=== PATIENT | female | born 1985 | race Caucasian/White ===

== ENCOUNTER 2016-11-06 20:13 | Emergency (ER) | payer OTHER ==
[~2016-11-06] VITALS: Ht 165.1 cm; Wt 86.5 kg
[2016-11-06 21:34] VITALS: Ht 165.1 cm; Wt 86.5 kg
--- NOTE | 2016-11-06 22:56 | RADRPT ---
PROCEDURE: Obstetrical ultrasound. CLINICAL INDICATION: Vaginal bleeding. TECHNIQUE: Multiple sonographic images of the pelvis were obtained with transabdominal technique. Images were obtained with bell scale and color Doppler. COMPARISON: No prior studies are available for comparison. FINDINGS: There is an intrauterine gestational sac with a pole identified. heart tones of 162 beat s per minute are identified. The crown-rump length averages 0.96 cm, compatible with 7 weeks a nd 0 days. The mean sac diameter averages 2.18 cm, compatible with 7 weeks and 0 days. A yolk sac is identified. A small subchorionic collection is identified. There is no pelvic free fluid. Bilateral ovaries are not visualized. There is no suspicious adnexal mass identified. IMPRESSION: Single live intrauterine with an estimated gestational age of 7 weeks and 0 days, with an ultrasound JEANNE of 06/25/2017. Small subchorionic hemorrhage. Bilateral ovaries not visualized. .Karan Stearns MD, Date Time Electronically viewed and signed by .Karan Stearns MD, MD on 11/06/2016 22:56 .T/
[2016-11-06 23:12] LABS: BASOPHIL # 0.1 10^3/ul (0.0-0.1); BASOPHILS % 0.5 % (0.0-2.0); EOSINOPHILS # 0.2 10^3/ul (0.0-0.5); EOSINOPHILS % 1.7 % (0.0-7.0); HEMOGLOBIN 13.1 g/dl (12.0-16.0); LYMPHOCYTES # 3.5 10^3/ul (0.8-2.9); MEAN CORPUSCULAR HEMOGLOBIN 31.2 pg (29.0-33.0); MEAN CORPUSCULAR HGB CONC 34.4 g/dl (32.0-37.0); MEAN CORPUSCULAR VOLUME 90.6 fl (82.0-101.0); MEAN PLATELET VOLUME 9.4 fl (7.4-10.4); MONOCYTE # 0.7 10^3/ul (0.3-0.9); MONOCYTES % 5.8 % (0.0-11.0); NEUTROPHIL # 6.9 10^3/ul (1.6-7.5); PLATELET COUNT 215 10^3/UL (140-440); RED BLOOD COUNT 4.19 10^6/ul (4.20-5.40); RED CELL DISTRIBUTION WIDTH 12.7 % (11.5-14.5); UNCORRECTED WBC 11.3 10^3/ul (4.8-10.8); WHITE BLOOD COUNT 11.3 10^3/ul (4.8-10.8)
[2016-11-06 23:17] LABS: CONDITION 1
[2016-11-06 23:38] LABS: ADD UMIC YES; URINE BILIRUBIN (Dip) NEGATIVE (NEGATIVE); URINE BLOOD (Dip) 3+ (NEGATIVE); URINE COLOR LT. YELLOW (YELLOW); URINE GLUCOSE (Dip) NEGATIVE (NEGATIVE); URINE KETONES (Dip) NEGATIVE (NEGATIVE); URINE LEUKOCYTE ESTERASE (Dip) NEGATIVE (NEGATIVE); URINE NITRITE (Dip) POSITIVE (NEGATIVE); URINE TOTAL PROTEIN (Dip) NEGATIVE (NEGATIVE); URINE UROBILINOGEN (Dip) 0.2 E.U./dL (0.1-1.0)
[2016-11-07 00:15] LABS: BACTERIA,URINE MANY; SQUAMOUS EPITHELIAL CELL,UR FEW; URINE RBCS 0-2 /HPF (0)
--- NOTE | 2016-11-07 01:00 | ERD ---
ER Documentation Chief Complaint Date/Time DATE: 11/07/16 TIME: 00:54 Chief Complaint vaginal spotting x 1 wk,heavy bleeding 1&half hr,abd. bloating, back pain. HPI Patient is a 31 year-old female, , who presents to the emergency department with vaginal spotting x one week. She states one hour ago she started to have heavier bleeding. She states that she has thus far used one pad today. She denies any abdominal pain. Patient states that she does have some lower back pain. Patient denies any trauma or falls. Patient denies any fever, chills, nausea, vomiting. Patient denies any pain with urination. Patient last menstrual period was on 09/12/16. ROS All systems reviewed and are negative except as per history of present illness. Allergies Allergies: Coded Allergies: No Known Allergy (Unverified , 11/06/16) PMhx/Soc History of Surgery: No Anesthesia Reaction: No Hx Neurological Disorder: No Hx Respiratory Disorders: No Hx Cardiac Disorders: No Hx Psychiatric Problems: No Hx Miscellaneous Medical Probl: Yes (PRE-DIABETIC, ELEVATED LIVER ENZYMES,.) Hx Alcohol Use: No Hx Substance Use: No Hx Tobacco Use: No Smoking Status: Never smoker FmHx Family History: No diabetes Physical Exam Vitals Vital Signs Date Time Temp Pulse Resp B/P Pulse Ox O2 Delivery O2 Flow Rate FiO2 11/07/16 01:10 98.3 80 18 146/78 100 Room Air 11/06/16 21:34 98.5 78 20 123/70 99 Physical Exam GENERAL: Well-developed, well-nourished female. Appears in no acute distress. HEAD: Normocephalic, atraumatic. EYES: Pupils are equally reactive bilaterally. EOMs grossly intact. No conjunctival erythema. ENT: Moist mucous membranes. No uvula deviation. No kissing tonsils. NECK: Supple. No meningismus. LUNG: Clear to auscultation bilaterally. No rhonchi, wheezing, rales or coarse breath sounds. HEART: Regular rate and rhythm. No murmurs, rubs or gallops. ABDOMEN: No scars, ecchymosis or rashes noted. Soft, nontender, and nondistended. Positive bowel sounds in all four quadrants.~No rebound tenderness , no guarding. (-) McBurneys point tenderness. No CVA tenderness. BACK: No midline tenderness. Extremities: Equal pulses bilaterally. No peripheral clubbing, cyanosis or edema. No unilateral leg swelling. NEUROLOGIC: Alert and oriented. Moving all four extremities. 5/5 strength in all extremities. Normal speech. Steady gait. SKIN: Normal color. Warm and dry. No rashes or lesions. Result Diagram: 11/06/162237 Results 24 hrs Laboratory Tests Test 11/06/16 22:38 11/06/16 22:50 Basophils # 0.110^3/ul Basophils % 0.5% Beta HCG, Quantitative 42793.0mIU/ml Eosinophils # 0.210^3/ul Eosinophils % 1.7% Hematocrit 38.0% Hemoglobin 13.1g/dl Lymphocytes # 3.510^3/ul Lymphocytes % 31.0% Mean Corpuscular Hemoglobin 31.2pg Mean Corpuscular Hemoglobin Concent 34.4g/dl Mean Corpuscular Volume 90.6fl Mean Platelet Volume 9.4fl Monocytes # 0.710^3/ul Monocytes % 5.8% Neutrophils # 6.910^3/ul Neutrophils % 61.0% Nucleated Red Blood Cells # 0.010^3/ul Nucleated Red Blood Cells % 0.0/100WBC Platelet Count 55183^3/UL Red Blood Count 4.1910^6/ul Red Cell Distribution Width 12.7% White Blood Count 11.310^3/ul Urine Bacteria MANY Urine Bilirubin NEGATIVE Urine Clarity CLEAR Urine Color LT. YELLOW Urine Glucose NEGATIVE% Urine Hemoglobin 3+ Urine Ketones NEGATIVE Urine Leukocyte Esterase NEGATIVE Urine Microscopic RBC 0-2/HPF Urine Microscopic WBC 0-2/HPF Urine Nitrite POSITIVE Urine Specific Leonard 1.025 Urine Squamous Epithelial Cells FEW Urine Total Protein NEGATIVE Urine Urobilinogen 0.2 E.U./dL Urine pH 6.0 Procedures/MDM ED COURSE: The patient was stable throughout ED course. I kept the patient and/or family informed of laboratory and diagnostic imaging results throughout the ED course. DIAGNOSTIC IMAGING: Read by radiologist. DIAGNOSTIC IMAGING REPORT Patient: OSWALDO FIGUEREDO : 1985 Age: 31 Sex: F MR #: [id number] DOS: 11/06/162232 Ordering MD: BRITTA KHAN PA-C Location: [facility] Room/Bed: PROCEDURE: Obstetrical ultrasound. CLINICAL INDICATION: Vaginal bleeding. TECHNIQUE: Multiple sonographic images of the pelvis were obtained with transabdominal technique. Images were obtained with bell scale and color Doppler. COMPARISON: No prior studies are available for comparison. FINDINGS: There is an intrauterine gestational sac with a pole identified. heart tones of 162 beats per minute are identified. The crown-rump length averages 0.96 cm, compatible with 7 weeks and 0 days. The mean sac diameter averages 2.18 cm, compatible with 7 weeks and 0 days. A yolk sac is identified. A small subchorionic collection is identified. There is no pelvic free fluid. Bilateral ovaries are not visualized. There is no suspicious adnexal mass identified. IMPRESSION: Single live intrauterine with an estimated gestational age of 7 weeks and 0 days, with an ultrasound JEANNE of 06/25/2017. Small subchorionic hemorrhage. Bilateral ovaries not visualized. .Karan Stearns MD, MD Date Time Electronically viewed and signed by .Karan Stearns MD, MD on 11/06/2016 22:56 .T/ CC: BRITTA KHAN PA-C MEDICAL DECISION MAKING: This is a 31-year-old female who presents with vaginal spotting times one week. Vital signs were reviewed. Patient was afebrile. Patient was hemodynamically stable. Urine test was positive. Quantitative b-HCG was 66428. Patient was O positive. CBC showed no evidence of systemic infection or severe anemia. Pelvic US showed single live intrauterine with an estimated gestational age of 7 weeks and 0 days, with an ultrasound JEANNE of 06/25/2017. Small subchorionic hemorrhage. Given these findings, the patients presentation is most consistent with IUP and subchorionic hemorrhage. I have a much lower clinical concern for ectopic , ruptured ectopic , molar , incomplete , complete , missed , demise, anembyronic . Patient will need to follow-up with [facility] within 1 week for follow-up examination including beta hCG and repeat ultrasound. DISCHARGE: At this time, patient is stable for discharge and outpatient management. I had a conversation at length with the patient about the concerns of vaginal bleeding during the 1st trimester of . Patient and/or family understands that her vaginal bleeding can be a normal finding or a sign of miscarriage. I have instructed the patient to follow-up with her OBGYN for further monitoring including a repeat b-HCG level. I have instructed the patient to promptly return to the ER at any time for any new or worsening symptoms including increased pain, nausea, vomiting, continued bleeding, weakness, syncope or fever. The patient and/or family expressed understanding of and agreement with this plan. All questions were answered. Home care instructions were provided. Departure Diagnosis: Primary Impression: Normal IUP (intrauterine ) on ultrasound Trimester: unspecified trimester Qualified Code: Z34.90 - Normal IUP ( intrauterine ) on ultrasound, unspecified trimester Additional Impression: Subchorionic hematoma Fetus number: single or unspecified fetus Trimester: unspecified trimester Qualified Code: O41.8X90 - Subchorionic hematoma, unspecified trimester, not applicable or unspecified fetus Patient Instructions: Vaginal Bleed in Referrals: [facility] REFERRAL LIST BRITTA KHAN PA-C Nov 07, 2016 00:59
[2016-11-07 01:10] VITALS: BP 146/78; PULSE 80; RESP 18; TEMP 98.3
== END 2016-11-07 01:10 | disposition home or self-care (01) ==
LOC: FTE 20:13
DX: O41.8X90 Other specified disorders of amniotic fluid and membranes, unspecified trimester, not applicable or unspecified (principal); Z3A.01 Less than 8 weeks gestation of pregnancy
CPT/HCPCS: 76801; 81001; 84702; 85025; 86900; 86901; Z7502; 81003